=== PATIENT | female | born 1985 | race Caucasian/White ===

== ENCOUNTER 2017-10-31 06:45 | Inpatient (IN) | payer BC, OTHER ==
[~2017-10-31] VITALS: Ht 177.8 cm; Wt 81.6 kg
[2017-10-31] VITALS (18 sets, daily range): BP systolic 92–140; BP diastolic 52–83; Ht 177.8 cm; Wt 81.6 kg
[~2017-10-31 06:45] MED LIST: ACE3 PO; IBU800 PO; LOR10/500 PO
[2017-10-31] MEDS ORDERED: MORPHINE PF 5 MG/10 ML AMP ONE (07:07)
[2017-10-31 07:31] LABS: PLATELET COUNT, AUTOMATED 164 K/uL (150-450)
[2017-10-31] MEDS ORDERED: NS(*) 0.9% 1000 ML BAG 1,000 ML ONE ×2 (07:45→14:43)
[2017-10-31] MEDS ORDERED: NS 0.9% IRRIGATION 1000ML PLCT IR ONE (07:48)
[2017-10-31] MEDS ORDERED: NS(*) 0.9% 500 ML BAG 500 ML ONE (07:50)
[2017-10-31] MEDS: FAMOTIDINE 20 MG TAB PO SCH ×2 (08:00→21:30)
[2017-10-31] MEDS ORDERED: LR(*) 1000 ML BAG 1,000 ML ONE ×2 (08:03→14:43)
[2017-10-31] MEDS ORDERED: DIPH-911 PO (08:12)
[2017-10-31] MEDS ORDERED: PREN-127 PO (08:12)
[2017-10-31] MEDS ORDERED: OXYTOCIN 30 UNIT/D5LR 500 ML 500 ML IV PRN (08:47)
[2017-10-31] MEDS ORDERED: ACETAMINOPHEN 325 MG TAB PO PRN (08:50)
[2017-10-31] MEDS ORDERED: PROMETHAZINE 25 MG/ML 1 ML AMP IVP PRN (08:50)
[2017-10-31] MEDS ORDERED: LANOLIN OINT 7 GM TUBE TP PRN (08:50)
[2017-10-31] MEDS ORDERED: ONDANSETRON 4 MG/2 ML VIAL IV PRN (08:50)
[2017-10-31] MEDS ORDERED: MAGNESIUM HYDROXIDE* 30ML UDCP PO PRN (08:50)
[2017-10-31] MEDS ORDERED: SIMETHICONE 80 MG CHEW CHEW PRN (08:50)
[2017-10-31] MEDS ORDERED: KETOROLAC 30 MG/ML VIAL ONE (08:56)
--- NOTE | 2017-10-31 08:59 | History & Physical ---
History of Present Illness EDC per U/S: Nov 30, 2017 Estimated Gestational Age: 35.5 Chief Complaint Bleeding History of Present Illness 32yo at 35w5d presents with bleeding. Her is c/b complete placenta previa with hx of retained placenta x 2, Rh negative, hx of PP depression. She started bleeding this morning at 0530. She soaked through one pad with clots in a 20 minutes time frame. By the time she arrived her, the bleeding had slowed but was still consistent. She reports FM. No preeclampsia symptoms. Baby had received steroids 10/26-10/27. History Patient's Blood Type: A Negative Rubella Status: Immune Group B Strep Screen: Negative Obstetrical History: G1: 40wk , retained placenta G2: 39wk G3: 39wk , retained placenta G4: SAB at 6wks (twins) G5: Current Allergies: Coded Allergies: No Known Drug Allergies (Unverified Allergy, Mild, 10/27/07) Social History: No T/E/D. Med Rec Home Meds Reported Medications Diphenhydramine Hcl (UNISOM) 50 Mg Capsule, 50 MG PO, CAPSULE 10/31/17 Vits W-Ca,Fe,Fa(<1MG) ( VITAMINS) 1 Each Tablet, 1 EACH PO DAILY, TAB 10/31/17 Discontinued Reported Medications Acetaminophen/Codeine (Tylenol #3 300-30 Mg) 1 Ea Tab, 1 EA PO Q4H 1-2 TABLETS 10/29/07 Ibuprofen (Motrin) 800 Mg Tab, 800 MG PO Q8H, #30 0 Refills 10/29/07 Review of Systems Constitutional: No Fever Eyes: No Vision Change Cardiovascular: No Chest Pain Respiratory: No Shortness of Breath Gastrointestinal: No Nausea, No Vomiting, No Diarrhea Genitourinary: No Dysuria Musculoskeletal: No Pain Psychiatric: Depression ( only), No Anxiety Exam General Exam Vital Signs Vital Signs Date Time Temp Pulse Resp B/P (MAP) Pulse Ox O2 Delivery O2 Flow Rate FiO2 10/31/17 08:12 99.2 87 20 140/83 (102) 92 Room Air General Apperance: Alert/Awake/No Acute Distress Neuro: No Gross deficits Eyes: Normal Extraocular Movement & Vison Cardiovascular: Regular Rate and Rhythm Respiratory: No Respiratory Distress, Clear to Auscultation Abdomen: Gravid - Non-Tender : Other (light red flow of blood vaginally) Musculoskeletal: No Weakness/Pain Extremities: No Cyanosis,Clubbing or Edema Integumentary: Skin Intact without Lesions or Rash Psychological: Alert & Oriented X3, Appropriate Mood & Affect Fetus FHT Category: I Medical Decision Making Data Points Result Diagram: 10/31/17 0707 Pre-Admit Course Medical Record Review: Yes Assessment and Plan Problems: (1) Complete placenta previa with hemorrhage, third trimester Assessment & Plan: 32yo at 35w5d presents with acute hemorrhage c/b complete previa. After initial evaluation, an urgent delivery was requested. She was typed and crossed and taken to the OR. PLTCD performed without complication. (2) Rh negative status during , third trimester, single gestation Assessment & Plan: RhoGAM evbradley PP. (3) 35 weeks gestation of KRISTIE GREGORY MD Oct 31, 2017 08:59
[2017-10-31] MEDS: DOCUSATE CALCIUM 240 MG CAP PO SCH ×2 (09:00→21:30)
[2017-10-31] MEDS: SERTRALINE HCL 50 MG TAB PO SCH ×2 (09:00→17:16)
--- NOTE | 2017-10-31 09:07 | Post Operative Note ---
Operative Note - NURSE OB Operative Day Date: Oct 31, 2017 Physicians Surgeon: Jessica Bicycle Racer: Herson Anesthesia: Spinal, Zarate Diagnosis Pre-Op Diagnosis: Complete placenta previa, hemorrhage Post-Op Diagnosis: Same Delivery of viable male at 0741hrs, 3196g (7#0.7oz), Apgars 7/8 Procedure Procedure(s): PLTCD Specimen Removed:(Maybe N/A): Placenta Fluids Fluids: IVF: 1200cc Estimated Blood Loss: 1200cc KRISTIE GREGORY MD Oct 31, 2017 09:07
[2017-10-31] MEDS ORDERED: OXYC-865 PO (10:02)
[2017-10-31] MEDS ORDERED: KET10 PO (10:02)
[2017-10-31] MEDS ORDERED: DOCU-416 PO (10:02)
[2017-10-31] MEDS ORDERED: FAMOTIDINE(*) 20MG/50ML PREMIX 50 ML IVPB ONE (14:43)
[2017-10-31] MEDS ORDERED: ceFAZolin(*) 2GM/D5W 50ML 50 ML IVPB ONE (14:43)
[2017-10-31] MEDS: DLR(*) 1000 ML BAG 1,000 ML IV PRN ×2 (15:10→22:15)
[2017-10-31] MEDS: KETOROLAC 30 MG/ML VIAL IVP SCH ×2 (15:10→21:30)
[2017-11-01] MEDS: KETOROLAC 30 MG/ML VIAL IVP SCH (03:40)
[2017-11-01 03:45] VITALS: BP 103/58
[2017-11-01 04:32] LABS: PLATELET COUNT, AUTOMATED 138 K/uL (150-450)
--- NOTE | 2017-11-01 07:58 | OB/GYN Progress Note ---
OB Subjective Progress Notes Subjective Doing well. Pain controlled with oral medications. Tolerating regular diet. Cross in. Not yet ambulating, was dizzy with standing yesterday. Normal lochia. No preeclampsia symptoms. OB Objective Physical Exam Vital Signs Date Time Temp Pulse Resp B/P (MAP) Pulse Ox O2 Delivery O2 Flow Rate FiO2 11/01/17 03:45 98.2 60 16 103/58 (73) 96 Nasal Cannula 1.0 General Appearance: Alert/Awake/No Acute Distress Neurological: No Gross deficits Eyes: Normal Extraocular Movement & Vison Respiratory: No Respiratory Distress, Clear to Auscultation Abdomen: Soft, Non-Tender, Non-Distended, Fundus Firm Incision: Clean, Dry, Intact Extremities: No Cyanosis,Clubbing or Edema Integumentary: Skin Intact without Lesions or Rash Psychological: Alert & Oriented X3, Appropriate Mood & Affect Result Diagram: 11/01/17 0410 Assessment and Plan Problems: (1) Status post delivery Assessment & Plan: POD#1 s/p PLTCD. Routine orders. If stable and able, will discharge today since baby is at PSL. (2) Complete placenta previa with hemorrhage, third trimester (3) Rh negative status during , third trimester, single gestation (4) 35 weeks gestation of KRISTIE GREGORY MD Nov 01, 2017 07:58
--- NOTE | 2017-11-01 07:59 | OB/GYN Discharge Summary ---
Discharge Summary Reason for Hosp/Final Diag: (1) Status post delivery Hospital Course & Plan: POD#1 s/p PLTCD. Routine orders. If stable and able, will discharge today since baby is at PSL. (2) Complete placenta previa with hemorrhage, third trimester (3) Rh negative status during , third trimester, single gestation (4) 35 weeks gestation of Lates Vital Signs Vital Signs Date Time Temp Pulse Resp B/P (MAP) Pulse Ox O2 Delivery O2 Flow Rate FiO2 11/01/17 03:45 98.2 60 16 103/58 (73) 96 Nasal Cannula 1.0 Weight (Pounds): 180 Result Diagram: 11/01/17 0410 Condition: Improved Home Meds Active Scripts Oxycodone Hcl/Acetaminophen (PERCOCET 5-325 MG TABLET) 1 Each Tablet, 1-2 TAB PO Q4H Y for pain, #40 TAB 0 Refills Prov:KRISTIE LOPEZ MD 10/31/17 Reported Medications Diphenhydramine Hcl (UNISOM) 50 Mg Capsule, 50 MG PO, CAPSULE 10/31/17 Vits W-Ca,Fe,Fa(<1MG) ( VITAMINS) 1 Each Tablet, 1 EACH PO DAILY, TAB 10/31/17 Discontinued Reported Medications Acetaminophen/Codeine (Tylenol #3 300-30 Mg) 1 Ea Tab, 1 EA PO Q4H 1-2 TABLETS 10/29/07 Ibuprofen (Motrin) 800 Mg Tab, 800 MG PO Q8H, #30 0 Refills 10/29/07 Follow up Referrals: ESTATE ADMINISTRATOR - In One Week @ [facility] with Kristie Lopez Md Discharge Diet: As Tolerates Discharge Activity: No Heavy Lifting > 10lb, Pelvic Rest KRISTIE LOPEZ MD Nov 01, 2017 07:59
[2017-11-01] MEDS: SERTRALINE HCL 50 MG TAB PO SCH (08:36)
[2017-11-01] MEDS: FAMOTIDINE 20 MG TAB PO SCH (08:36)
[2017-11-01] MEDS: DOCUSATE CALCIUM 240 MG CAP PO SCH (08:36)
[2017-11-01 08:45] VITALS: BP 123/70
[2017-11-01] MEDS ORDERED: KETOROLAC TROM 10MG TAB PO SCH (09:00)
[2017-11-02] MEDS ORDERED: MEASLES,MUMP,RUBELLA VAC 0.5ML SUBQ ONE (09:00)
[2017-11-02] MEDS ORDERED: DIPHTH/TETANUS/ACEL. PERTUSSIS IM ONLY ONE (09:00)
[2017-11-02] MEDS ORDERED: INFLUENZA VIRUS VAC 0.5 ML SYR IM ONLY ONE (09:00)
--- NOTE | 2017-11-08 19:49 | OPERATIVE REPORT 1 ---
EVENT DATE: October 31, 2017 SURGEON: Halie Lopez MD ANESTHESIOLOGIST: Akbar Zarate MD ANESTHESIA: Spinal. INSULATION INSTALLER: Woody Bains MD PREOPERATIVE DIAGNOSES 1. 5, para 3-0-1-3 at 35 weeks 5 days. 2. Complete placenta previa. 3. Acute hemorrhage. POSTOPERATIVE DIAGNOSES 1. 5, para 3-0-1-3 at 35 weeks 5 days. 2. Complete placenta previa. 3. Acute hemorrhage. 4. Delivery of a viable male infant 0741 hours weighing 3196 g or 7 pounds 0.7 ounces with Apgars of 7 at one minute and 8 at five minutes. PROCEDURE PERFORMED Primary low transverse delivery. SPECIMENS Placenta. INTRAVENOUS FLUIDS 1200 mL ESTIMATED BLOOD LOSS 1200 mL INDICATIONS FOR PROCEDURE This patient is a 32-year-old 5, para 3-0-1-3, who presented at 35 weeks 5 days with vaginal bleeding. Her was complicated by a now complete placenta previa with history of retained placenta times two, Rh negative, and history of depression. At the time of presentation, she was noted to be acutely bleeding, however, not a severe hemorrhage. She, therefore, was prepared for a primary delivery with preparation of blood products. She was stable enough to receive a spinal anesthetic. Please see history and physical for full details. DESCRIPTION OF PROCEDURE The patient was properly identified and taken to the operating room. She was administered a spinal anesthetic. She was then placed in the supine position with a leftward tilt. A Cross catheter had been previously placed in the preoperative bay. Ancef was also administered preoperatively. The abdomen was prepped and draped in the usual fashion for lower abdominal surgery. After adequate anesthesia was confirmed, a Pfannenstiel incision was planned with a marker. The incision was then made with a scalpel and carried down to the level of the rectus fascia. This incision was extended in a blunt fashion. The fascia was then nicked in the midline with a scalpel and extended in a blunt fashion. The rectus fascia was from the underlying rectus muscle superiorly to the infraumbilical plate and inferiorly to the dome of the bladder using a blunt fashion. The peritoneum was then entered bluntly, and the incision was extended in a blunt fashion. The bladder blade was placed. A low transverse incision was then made over the lower uterine segment until the placenta was reached. The amniotic sac was able to be identified around the placenta and was ruptured with return of clear fluid. The infant's vertex was then delivered easily, followed by the anterior and posterior shoulders. The remainder of the was easily delivered. The infant had a spontaneous cry. He had spontaneous movement of all extremities. The oropharynx and nasopharynx were bulb suctioned. After 35 seconds, the cord was clamped times two and cut, and the was passed to nursing personnel in good condition. Attention was then turned to the placenta for removal. The placenta was manually removed off of the anterior and posterior aspects of the uterus. The uterus was then exteriorized and cleared of any remaining clots, debris, or placental tissue. The uterus did have excellent tone at that time, and Pitocin was started through the IV fluid to help firm the uterus. The uterine incision was then closed with an 0 Vicryl in a running locking fashion. A second imbricating layer of 0 Monocryl was then performed. The uterus had excellent tone, and there was minimal bleeding at that time. The uterus was replaced into the abdominal cavity. The pericolic gutters were cleared of clots and debris. Examination of the hysterotomy incision appeared hemostatic. The peritoneum was then reapproximated using a 3-0 Monocryl in a running nonlocking fashion, followed by reapproximation of the rectus muscle in the midline. Copious irrigation of the rectus muscle was performed, and the muscle was noted to be hemostatic. The rectus fascia was then reapproximated using an 0 Vicryl in a running nonlocking fashion from one apex to the next. Copious irrigation of the subcutaneous tissue was then performed. The subcutaneous tissue was reapproximated using a 3-0 Monocryl in running nonlocking fashion. The skin was then closed with Insorb jose. A 4 x 4 dressing and a pressure dressing were then placed. The patient tolerated this procedure well and was able to recover in the PACU. The infant was taken to the Nursery for further evaluation and management. Please note that after the procedure was terminated, fundal pressure revealed a significant amount of clot from the vagina. Therefore, Methergine 0.2 mg was administered intramuscularly in the operative room prior to leaving. EDMUND
== END 2017-11-01 13:10 | disposition home or self-care (01) | DRG 765 ==
LOC: OB 06:45
PROVIDERS: ADMIT Obstetrics & Gynecology; ATTEND Obstetrics & Gynecology
PROC: 10D00Z1 Extraction of Products of Conception, Low, Open Approach (ICD-10-PCS; 2017-10-31)
PROC: 3E0334Z Introduction of Serum, Toxoid and Vaccine into Peripheral Vein, Percutaneous Approach (ICD-10-PCS; principal; 2017-10-31 07:22)
DX: O44.13 Complete placenta previa with hemorrhage, third trimester (principal); O36.0130 Maternal care for anti-D [Rh] antibodies, third trimester, not applicable or unspecified; Z37.0 Single live birth; Z3A.35 35 weeks gestation of pregnancy
CPT/HCPCS: 36415; 59025; 85025; 85461; 86850; 86870; 86900; 86901; 86920; 88307; J0690; J1885; J2270; J2791; J3490; J7030; J7040; J7120; P9017

== ENCOUNTER → 2018-07-14 | Outpatient (CLI) | payer OTHER ==
[2017-10-31 08:12] VITALS: BMI 25.8
[~2018-07-14] MED LIST changes: +DIPH-911 PO; +DOCU-416 PO; +FLU60SYR36 IM; +GADOBENATE 529MG/1ML 15ML VIAL IVP ONE; +KET10 PO; +L-NO1TBD6 PO; +MISO200T59 PV; +NS(*) 0.9% 50 ML BAG 50 ML ONE; +OXYC-865 PO; +PREN-127 PO
--- NOTE | 2018-07-14 16:33 | RADIOLOGY IMAGING REPORT ---
FACILITY: [facility] PATIENT NAME: Karis Lui : 1985 MR: [id number] V: [id number] EXAM DATE: ORDERING PHYSICIAN: KRISTIE GREGORY TECHNOLOGIST: Location: [facility] Patient: Karis Lui : 1985 Visit/Account:[id number] Date of Sevice: 07/14/2018 PELVIS W W/O CONTRAST COMPARISON: None. HISTORY: Pelvic mass, pain, abnormal pelvic ultrasound. Pelvic mass in female. TECHNIQUE: Multiplanar MRI pelvis utilizing T1-weighted and fluid sensitive sequences. CONTRAST: 15 mL of IV MultiHance. MRI PELVIS FINDINGS: VASCULAR: Unremarkable. PELVIC BOWEL: Suboptimally assessed by MRI. Visualized portions are unremarkable. BLADDER: Unremarkable. No visible focal wall thickening, appreciable lesion, or calculus. PELVIC NODES: Unremarkable. No adenopathy. PELVIC ORGANS: Uterus measures 5.9-5.4 cm. Normal thickness endometrium with susceptibility artifac t in the ventral lower uterine segment suggestive of previous . The junctional zone is diff usely thickened to between 1.4 and about 1.7 cm which is most consistent with diffuse adenomyosis alt pablo there are no associated T2 hyperintense foci. Normal right ovary measuring up bowel 2.8 x 2.8 cm (series 3 image 18), with several small follicles. Normal left ovary on the same image measuring about 1.8 x 3.0 cm with several small follicles. Severely dilated fallopian tubes bilaterally, with fluid fluid levels. Dependently there is intermediate T1 and dark T2 signal in this may be due to he matosalpinx or pyosalpinx. No significant fat stranding. Nonenhancing apparent T1 hyperintense cyst ic lesion along the anterior margin of the left fallopian tube measures 2.4 x 4.0 cm could represent hemorrhagic cyst, endometrioma or simply a dilated segment of the distal tube. BONES: Unremarkable. No acute appearing fracture or suspicious bone lesion. OTHER: Small free fluid. IMPRESSION: 1. Severe bilateral hydrosalpinx, with internal complex fluid fluid levels which may represent hemat osalpinx or pyosalpinx. 2. 4 cm lesion or pseudolesion along the anterior margin of the left fallopian tube could represent a hemorrhagic cyst, endometrioma or cystic dilatation of the distal fallopian tube containing hemorrh agic or proteinaceous fluid. 3. Normal ovaries. Small amount free fluid in the pelvis which is probably physiologic. 4. Diffuse junctional zone thickening suggestive of diffuse adenomyosis. Probable scar in the lower uterine segment. Report Dictated By: Larry Clay at 07/14/2018 4:11 PM Report E-Signed By: Larry Clay at 07/14/2018 4:29 PM WSN:[id number]
== END ==
LOC: MRI 14:32
PROVIDERS: ATTEND Obstetrics & Gynecology
DX: N70.11 Chronic salpingitis (principal)
CPT/HCPCS: 72197; A9577; J7050

== ENCOUNTER 2018-07-17 00:32 | Observation (INO) | payer OTHER ==
[2017-10-31 08:12] VITALS: Ht 175.3 cm; Wt 75.3 kg
[2018-07-17] VITALS (13 sets, daily range): BP systolic 103–123; BP diastolic 63–85
[~2018-07-17] VITALS: Ht 175.3 cm; Wt 75.3 kg
[~2018-07-17 00:32] MED LIST changes: -GADOBENATE 529MG/1ML 15ML VIAL IVP ONE; -NS(*) 0.9% 50 ML BAG 50 ML ONE
[2018-07-17] MEDS ORDERED: ceFAZolin(*) 2GM/D5W 50ML 50 ML IVPB ONE ×2 (08:14→11:00)
[2018-07-17 10:57] LABS: PLATELET COUNT, AUTOMATED 233 K/uL (150-450)
[2018-07-17] MEDS ORDERED: LIDOCAINE/SOD BICARB 8.4% SYR ID ONE (11:00)
[2018-07-17] MEDS ORDERED: FAMOTIDINE 20 MG TAB PO ONE (11:00)
[2018-07-17] MEDS ORDERED: NORMOSOL R SOLN(*) 1000 ML BAG 1,000 ML IV PRN (11:00)
[2018-07-17] MEDS ORDERED: MIDAZOLAM 2 MG/2 ML VIAL IVP PRN (11:00)
[2018-07-17] MEDS ORDERED: BUPIV/EPI 0.25% 1:200,000 50ML INFIL ONE (11:30)
[2018-07-17] MEDS ORDERED: HYDROmorphone HCL 2 MG/ML SDV ONE ×2 (11:53→15:10)
[2018-07-17] MEDS ORDERED: ONDANSETRON 4 MG/2 ML VIAL ONE (13:29)
[2018-07-17] MEDS ORDERED: PROPOFOL EMUL(*) 10MG/ML 20 ML 40 ML ONE (13:29)
[2018-07-17] MEDS ORDERED: DEXAMETHASONE SOD PHOS 10MG/ML ONE (13:29)
[2018-07-17] MEDS ORDERED: ROCURONIUM BROM 10 MG/ML 10 ML ONE (13:29)
[2018-07-17] MEDS ORDERED: SUGAMMADEX SOD 200 MG/2 ML SDV ONE (14:05)
--- NOTE | 2018-07-17 14:17 | Post Operative Note ---
Operative Note - HEAD CONCIERGE Operative Day Date: Jul 17, 2018 Physicians Surgeon: Jessica Cuff Cutter: Alessandra for entry Anesthesia: Indigo CARRERA Diagnosis Pre-Op Diagnosis: Dilated bilateral fallopian tubes with pelvic pain Menorrhagia and dysmenorrhea Post-Op Diagnosis: Bilateral hematosalpinx with pelvic pain Menorrhagia and dysmenorrhea Procedure Procedure(s): RATLH-BS Dx cysto Specimen Removed:(Maybe N/A): Uterus, bilateral fallopian tubes Fluids Fluids: IVF: 1400cc UOP: 200cc Estimated Blood Loss: 20cc KRISTIE GREGORY MD Jul 17, 2018 14:17
[2018-07-17] MEDS ORDERED: ONDANSETRON 4 MG/2 ML VIAL IV PRN (14:20)
[2018-07-17] MEDS ORDERED: ACETAMINOPHEN 325 MG TAB PO PRN (14:20)
[2018-07-17] MEDS ORDERED: HYDROmorphone HCL 2 MG/ML SDV IVP PRN ×2 (14:20→20:45)
[2018-07-17] MEDS ORDERED: MAGNESIUM HYDROXIDE* 30ML UDCP PO PRN (14:20)
[2018-07-17] MEDS ORDERED: SIMETHICONE 80 MG CHEW CHEW PRN (14:20)
[2018-07-17] MEDS ORDERED: METOCLOPRAMIDE 10 MG/2 ML SDV IV PRN (14:20)
[2018-07-17] MEDS ORDERED: fentaNYL CITR 100 MCG/2 ML AMP ONE (14:47)
[2018-07-17] MEDS ORDERED: IBUP800T37 PO (15:00)
[2018-07-17] MEDS ORDERED: OXYC-865 PO (15:00)
[2018-07-17] MEDS: DLR(*) 1000 ML BAG 1,000 ML IV PRN ×2 (16:28→22:12)
[2018-07-17] MEDS ORDERED: KETOROLAC 30 MG/ML VIAL IVP SCH (18:00)
[2018-07-17] MEDS ORDERED: ACETAMINOPHEN(*)1000 MG/100 ML 100 ML IVPB SCH (18:00)
[2018-07-17] MEDS: FAMOTIDINE 20 MG TAB PO SCH (20:35)
[2018-07-17] MEDS: DOCUSATE CALCIUM 240 MG CAP PO SCH (20:35)
[2018-07-17] MEDS: KETOROLAC 30 MG/ML VIAL IVP SCH (22:15)
[2018-07-18 03:20] VITALS: BP 97/61
[2018-07-18] MEDS: KETOROLAC 30 MG/ML VIAL IVP SCH (03:20)
[2018-07-18 06:09] LABS: PLATELET COUNT, AUTOMATED 195 K/uL (150-450)
[2018-07-18] MEDS ORDERED: ONDANSETRON 4 MG ODT TABDP SL PRN ×2 (07:20→07:25)
[2018-07-18] MEDS: FAMOTIDINE 20 MG TAB PO SCH (08:13)
[2018-07-18] MEDS: DOCUSATE CALCIUM 240 MG CAP PO SCH (08:14)
--- NOTE | 2018-07-18 08:20 | OB/GYN Progress Note ---
OB Subjective Progress Notes Subjective Doing well. Pain controlled with oral medications. Tolerating regular diet. Ambulating. Not yet voiding, ward just out. Minimal vaginal bleeding. No chest pain, shortness of breath or dizziness. OB Objective Physical Exam Vital Signs Date Time Temp Pulse Resp B/P (MAP) Pulse Ox O2 Delivery O2 Flow Rate FiO2 07/18/18 06:00 17 90 Room Air 07/18/18 05:23 46 07/18/18 03:20 97/61 (73) 07/17/18 18:00 1.0 07/17/18 16:10 97.0 Intake and Output 07/18/18 06:59 Intake Total 2390 ml Output Total 2440 ml Balance -50 ml Intake Oral 0 ml IV Total 2390 ml Output Urine Total 2420 ml Estimated Blood Loss 20 ml General Appearance: Alert/Awake/No Acute Distress Neurological: No Gross deficits Eyes: Normal Extraocular Movement & Vison Cardiovascular: Normal Rhythm & Peripheral Pulses Respiratory: No Respiratory Distress, Clear to Auscultation Abdomen: Soft, Non-Tender, Non-Distended Incision: Clean, Dry, Intact Musculoskeletal: No Weakness/Pain Extremities: No Cyanosis,Clubbing or Edema Integumentary: Skin Intact without Lesions or Rash Psychological: Alert & Oriented X3, Appropriate Mood & Affect Result Diagram: 07/18/18 0555 Assessment and Plan Problems: (1) Status post laparoscopic hysterectomy Assessment & Plan: POD#1 s/p RATLH/BS, dx cysto. She is doing well. Will discharge to home this afternoon if she continues to progress and can void. KRISTIE GREGORY MD Jul 18, 2018 08:20
--- NOTE | 2018-07-18 08:21 | OB/GYN Discharge Summary ---
Discharge Summary Reason for Hosp/Final Diag: (1) Status post laparoscopic hysterectomy Hospital Course & Plan: POD#1 s/p RATLH/BS, dx cysto. She is doing well. Will discharge to home this afternoon if she continues to progress and can void. Lates Vital Signs Vital Signs Date Time Temp Pulse Resp B/P (MAP) Pulse Ox O2 Delivery O2 Flow Rate FiO2 07/18/18 06:00 17 90 Room Air 07/18/18 05:23 46 07/18/18 03:20 97/61 (73) 07/17/18 18:00 1.0 07/17/18 16:10 97.0 Weight (Pounds): 166 Result Diagram: 07/18/18 0555 Condition: Improved Home Meds Active Scripts Oxycodone Hcl/Acetaminophen (PERCOCET 5-325 MG TABLET) 1 Each Tablet, 1 TAB PO Q4-6H PRN for pain, #20 TAB 0 Refills Prov:KRISTIE GREGORY MD 07/17/18 Discontinued Scripts [id number] Estr/Ethin Estra (SEASONIQUE 0.15-0.03-0.01 TAB) 1 Each Tbdspk.3mo, 1 EACH PO DAILY, #1 PACK 12 Refills Prov:KRISTIE GREGORY MD 07/14/18 Misoprostol (CYTOTEC) 200 Mcg Tablet, 400 MCG PV ONCE, #2 TAB 0 Refills 2 TABS VAGINALLY 6-8 HRS BEFORE PROCEDURE Prov:KRISTIE GREGORY MD 07/04/18 Follow up Referrals: MILL HOUSE SUPERVISOR @ [facility] with KRISTIE GREGORY MD Discharge Diet: As Tolerates Discharge Activity: No Heavy Lifting > 10lb, Pelvic Rest KRISTIE GREGORY MD Jul 18, 2018 08:21
[2018-07-18 08:45] VITALS: BP 108/67
[2018-07-18] MEDS ORDERED: INFLUENZA VIRUS VAC 0.5ML SYR IM ONLY ONE (09:00)
[2018-07-18] MEDS ORDERED: IBUPROFEN 800 MG TAB PO PRN (10:00)
--- NOTE | 2018-07-18 10:33 | OPERATIVE REPORT 1 ---
EVENT DATE: July 17, 2018 SURGEON: Halie Lopez MD ANESTHESIOLOGIST: Tay Sood MD ANESTHESIA: General endotracheal tube. BRAND LEADER: Munir Aparicio MD for the entry of laparoscopy. PREOPERATIVE DIAGNOSIS 1. Dilated bilateral fallopian tubes with pelvic pain. 2. Menorrhagia and dysmenorrhea. POSTOPERATIVE DIAGNOSIS 1. Bilateral hematosalpinx with pelvic pain. 2. Menorrhagia and dysmenorrhea. PROCEDURE PERFORMED 1. Robotic assisted total laparoscopic hysterectomy with bilateral salpingectomy. 2. Diagnostic cystoscopy. SPECIMENS Uterus, bilateral fallopian tubes. IV FLUIDS 1400 cc. URINE OUTPUT 200 cc. ESTIMATED BLOOD LOSS 20 cc. INDICATIONS FOR PROCEDURE This patient is a 32-year-old 4, para 4 who presented with off and on bilateral pelvic pain for a couple of weeks. During this evaluation, her IUD was noted to be misplaced. This was therefore removed and after two attempts at reinsertion this was unsuccessful due to a severe anteversion of the uterus. During this evaluation, she also was found to have complex cystic masses in her pelvis. An MRI was then performed which revealed severely dilated bilateral fallopian tubes and evidence of possible adenomyosis. After discussing these findings, the patient elected to proceed with definitive management with the above said procedure. Please see the history and physical for full details. After discussing the risk, benefits, and alternatives, the patient did elect to proceed. DESCRIPTION OF PROCEDURE The patient was properly identified and taken to the operating room. She was placed under general endotracheal tube anesthesia and then placed in the dorsal lithotomy position and prepped and draped in the usual fashion for a laparoscopic surgery. The patient received Ancef preoperatively for prophylactic antibiotics. Her SCDs were on and functioning. A timeout was then taken to affirm the appropriate procedure and patient. A speculum was placed to visualize the cervix which was multiparous and without lesion. The anterior lip was grasped with an Allis clamp. This was then placed on traction. The cervix was then serially dilated to 5 mm using Hegar dilators without any difficulty. A medium VCare uterine manipulator was then requested and assembled. A suture was placed through the anterior lip of the cervix, through the os and then from the os through the posterior lip of the cervix. This suture was then passed through the VCare. The VCare was then placed into the uterine fundus and the tip was insufflated. This remained in place and the colpotomy ring was advanced to be flush against the cervix and vaginal mucosa. This was then tied down with 0 Vicryl suture. The pneumo-occluder was then advanced into the vagina and secured. A Cross catheter was then placed to drain the bladder. The patient was then placed in supine position and attention was turned to the laparoscopic portion of the portion of the procedure. The supraumbilical region was then infiltrated with 0.25% Marcaine with Epinephrine. A Veress needle was tested and proven to be functioning. The Veress needle was then passed through the umbilicus into the abdominal cavity using the double click test. Pneumoperitoneum was then achieved. An 8 mm incision was then made supraumbilically. The 8 mm trocar was introduced under direct visualization though this midline incision using a [employer] laparoscope. Once entry into the abdominal cavity was confirmed, the Veress needle was removed and the remaining locations of the trocars were planned with two on the right and two on the left. On the patient's left side the 8 mm trocar in the medial position and the 11 mm trocar in the lateral position were planned, infiltrated with 0.25% Marcaine and an incision was made with the scalpel. These two trocars were then placed under direct visualization. On the patient's right, two additional 8 mm incisions were made following 0.25% Marcaine infiltration, followed by introduction of the trocars under direct visualization. The patient was then placed into Trendelenburg position and the da Jennie robotic system was prepared for docking. During this time, the superior abdomen was surveyed and noted to be within normal limits. The anterior abdominal wall was normal without any significant adhesions visualized at this time. The da Jennie robotic system was then brought in and aligned. The endoscope port was docked and the scope was introduced. Targeting was then performed on the uterus. The remaining arms were then docked without difficulty. The fenestrated bipolar graspers, ProGrasp, and monopolar scissors were then advanced under direct visualization into the pelvis, and energy was connected. At this time, I was able to break sterile attire and sit at the console to initiate the hysterectomy and evaluation of the fallopian tubes. Examination of the pelvis revealed bilateral fallopian tubes had significant hematosalpinx and both were adhesed to the posterior cul-de-sac along the side wall. The patient's right fallopian tube was grasped and elevated and was able to be bluntly dissected from the posterior cul-de-sac at which time a tube shaped clot was coming from the fimbria. The mesosalpinx was then cauterized and transected, followed by a separation of the fallopian tube completely. This right fallopian tube was then placed into the anterior cul-de-sac for further removal later. At this time, the uteroovarian ligament on the right side was cauterized and transected, followed by cautery and transection of the round ligament. Attention was then turned to the patient's left side where the fallopian tube was noted to be even more dilated than the right. There was a significant amount of adhesions to the pelvic side wall and the posterior cul-de-sac at this juncture. There was also an additional cystic structure that was part of the fallopian tube which was filled with dark brown fluid. The dissection on this side was initiated at the level of the uterus where the fallopian tube was transected and cauterized. The mesosalpinx was then carried down towards the fimbria carefully and with some adhesiolysis, the entire tube was able to be removed and was passed up to the anterior cul-de-sac. There was a small amount of what appeared to be fimbrial type tissue that was still attached to the ovary which was removed separately. An EndoCatch bag was then placed was then placed into the abdominal cavity and bilateral fallopian tubes were placed into the EndoCatch bag and tucked away into the anterior abdomen for removal later in the procedure. The left uteroovarian ligament was then cauterized and transected followed by the round ligament. This allowed opening of the broad ligament. The anterior leaflet of the broad ligament was then carried down to the vesicouterine peritoneum which was carried across the anterior lower uterine segment. The posterior peritoneum was then brought down off of the left side and the initial portion of the uterine artery was then cauterized and transected. Attention was then turned to the patient's right side again, where the broad ligament was opened up and the anterior leaflet was brought down, followed by dissection of the vesicouterine peritoneum to allow the colpotomy to be performed. The posterior aspect of the right side was then brought down to the level of where the colpotomy would need to be performed. The uterine arteries were then cauterized and transected on the right side in order to allow identification of the colpotomy ring. Attention was again turned to the patient's left side where the same procedure was performed in order to completely transect the uterine artery on that side. The colpotomy was then initiated along the left posterior aspect with identification of the colpotomy ring. The colpotomy was then continued in a circumferential clockwise fashion until the entire colpotomy was completed. The uterus was then delivered through the vagina. A ring forceps was then introduced through the vagina to grasp the EndoCatch bag which held the fallopian tubes. This bag was then removed without difficulty and a plastic bulb grenade was then placed into the vagina to maintain pneumoperitoneum. The cuff was copiously irrigated and noted to be hemostatic. An 0 Vicryl suture was then utilized in a [id number] manner using four different sutures to reapproximate the vaginal cuff starting on either corner and then moving towards the medial aspect. Once this was completely closed, copious irrigation was then performed revealing adequate hemostasis. At this time, the robot was undocked and I scrubbed in once again. Using the Aníbal-Manuela, the fascia of the assistant accounting manager port was closed using an 0 Vicryl. The pneumoperitoneum was then relieved but the trocars were not removed yet to allow for the cystoscopy to be performed. The Cross catheter was removed from the bladder. The cystoscope was assembled and introduced through the urethra and into the bladder under direct visualization. The entire bladder was evaluated and noted to be normal without any lesion or sutures. Bilateral ureteral jets were noted with yellow urine. The cystoscope was then removed and the Cross catheter was replaced. At this time, there was a small laceration within the mid portion of the vagina which was reapproximated using a 2-0 Vicryl. The laparoscopic trocars were then removed and all of the skin incisions were reapproximated using a 4-0 Monocryl and closed with Dermabond. The patient tolerated the procedure well and recovered in the post anesthesia care unit. All sponge, needle, instrument counts were correct at the end of this procedure. EDMUND
[2018-07-18 13:00] VITALS: BP 106/75
== END 2018-07-18 12:00 | disposition home or self-care (01) ==
LOC: OR 00:32 → OB 16:10 → UNDOADMOB 16:17
PROVIDERS: ADMIT Obstetrics & Gynecology; ATTEND Obstetrics & Gynecology
DX: Q50.6 Other congenital malformations of fallopian tube and broad ligament (principal); R10.2 Pelvic and perineal pain; N94.6 Dysmenorrhea, unspecified; N83.6 Hematosalpinx
CPT/HCPCS: 36415; 58571; 84703; 85025; 88307; G0378; J0131; J1100; J1170; J1885; J2250; J2405; J2704; J3010; S0119; S2900; J0690